=== PATIENT | female | born 1995 | race Asian ===

== ENCOUNTER 2023-11-11 19:04 | Emergency (ER) | payer OTHER, MEDICAID, SELFPAY ==
[2023-11-11 19:13] VITALS: TEMP 37.1; BMI 28.1
--- NOTE | 2023-11-11 19:33 | ED_ITS ---
HPI - Wound/Laceration General Date Seen: 11/11/23 Chief Complaint: Laceration/Wound Stated Complaint: Accidental cut on right wrist Time Seen by Provider: 11/11/23 19:07 Source: patient and RN notes reviewed Mode of arrival: ambulatory Limitations: no limitations History of Present Illness HPI narrative: Patient is a 28-year-old female coming in with scratch into cuts on her right wrist. She was washing a glass earlier today, the glass had a crack in it. When she put her hand inside the glass to wash it, it broke. It cut her wrist on the volar surface both medially and laterally, scratch over the dorsal proximal thumb area which is superficial. Her tetanus is up-to-date in 2019. She tried wound glue at home, it did not hold it. She has a flap along the radial surface of the wrist which is small but not staying well approximated. There is a smaller cut with linear extension into superficial skin on the ulnar side of this wrist. None are actively bleeding. Wounds are with in [address]: home Patient tetanus UTD: Yes Context: accidental Related Data Home Medications Medication Instructions Recorded Confirmed No Known Home Medications 12/30/22 11/11/23 Allergies Allergy/AdvReac Type Severity Reaction Status Date / Time No Known Drug Allergies Allergy Verified 11/11/23 19:13 Review of Systems Narrative: As per HPI. PFSH PFS Social History Smoking Status: Never smoker How often do you have a drink containing alcohol: monthly or less AUDIT-C Alcohol total score: 1 Non-prescribed substance use: marijuana (any form) Non-prescribed substance use details: thc some days Exam Const: Vital Signs, click to edit/add: Vital Signs - 24 hr 11/11/23 19:13 Temperature 98.7 F This 28-year-old female is alert, interactive, no apparent stress. Wounds are described as above in HPI. The wounds on the wrist would benefit from suturing, patient did agree. She has a small flap with the flap heading distally over the radial surface, smaller wound just into the subcutaneous tissue over the medial wrist with medial extension into a superficial wound. Looks like she would benefit from suturing. We discussed rationale for suturing, she would like to proceed. Documenting provider has reviewed patient's vital signs: yes Course Course ED Course: For mL of 2% lidocaine were drawn up, about 3 mL used locally over the 2 wound sites. Wound cleanser was then used to clean these wounds, I did perform this. Simple suture tray was used, standard sterile technique observed. Three simple interrupted sutures were placed along the radial wound, the ulnar wrist wound only required 1 stitch. Patient tolerated this procedure well, no immediate complications. Will have nursing staff bandage with bacitracin. Vital Signs Vital signs: Initial Vital Signs Temperature 98.7 F 11/11/23 19:13 Temperature Source Temporal Artery Scan 11/11/23 19:13 Vital Signs Temperature 98.7 F 11/11/23 19:13 Temperature 98.7 F 11/11/23 19:13 Discharge Plan Discharge Clinical Impression: Lacerations of multiple sites of right arm Qualifiers: Encounter type: initial encounter Qualified Code(s): S41.111A - Laceration without foreign body of right upper arm, initial encounter Patient Disposition: Home, Self-Care Condition: Stable Instructions: Care For Your Stitches (ED), Laceration (ED) Additional Instructions: Need to schedule clinic followup in about 1 weeks time to assess the wound for suture removal. Watch for infection, review handouts, if any concerns seek re-e valuation. Can use Tylenol and ibuprofen if needed for pain management, follow bottle directions for dosing. May shower and wash hands as usual but should otherwise keep the wounds on your wrist clean and dry. Use bacitracin and bandages until the wounds are healed. Activity Level: Activity as Tolerated Prescriptions: No Action No Known Home Medications Follow Up/Referrals: Provider,Not a Local [Primary Care Provider] - Stand Alone Forms: [employer] Info Instructions
[2023-11-11] MEDS: lidocaine HCL 2 % MULTIDOSE 20 ML VIAL 4 ML INJECTION (19:43)
[2023-11-11] MEDS: BACITRACIN 0.9 GM PACKET 1 EACH TOPICAL (19:43)
--- OUTSIDE RECORDS SUMMARY | 2023-11-11 19:50 | XMS_ITS | Encounter Summary ---
Author Name Unknown Organization [facility] Address [address] [place] [address] Care Team Providers Care Factory Process Workers Name Role Phone Found, No Pcp Primary Care Provider Unavailab le Encounter Details Date Type Department Care Team (Late st Contact Info) Description 12/12/2017 Consent for Procedure/Treatme [facility] Obstetrics and Gynecology [address], [place] [phone] Peggy De Los Santos L, FISH NET STRINGER, DNP [address] [place], [place] [phone] CONSENT FOR WATER Social History Tobacco Use Types Packs/Day Years Used Date Smoking Tobacco: Never Smokeless Tobacco: Never Alcohol Use Standard Drinks/Week Comments No 0 (1 standard drink = 0.6 oz pur e alcohol) none now Comments Yes Sex and Gender Information Value Date Recorded Sex Assigned at Not on file Gender Identity Not on file Sexual Orientation Not on file documented as of this encounter Plan of Treatment Not on file documented as of this encounter Visit Diagnoses Not on filedocumented in this encounter Additional Health Concerns Infection Onset Date Last Indicated Resolved Time R/O COVID19 08/01/2021 08/01/2021 08/02/2021 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
--- OUTSIDE RECORDS SUMMARY | 2023-11-11 19:50 | XMS_ITS | Clinical Summary ---
Author Name Unknown Organization [facility] Address [address] [place] [address] Care Team Providers Care Vinyl Installer Name Role Phone Found, No Pcp MD Primary Care Provider Unavailab le Source Comments You are receiving this document as you are listed as the primary care provider,follow-up provider, or the patient has been referred to you for consultation.This is in compliance with the Medicare and[facility] EHR Incentive Program,which states Providers who transition their patient to another setting of careor provider of care or refers their patient to another provider of care shouldprovide summary care record for each transition of care or referral. [facility] Allergies No known active allergies Medications Medication Sig Dispensed Refills Start Date End Date Status Misc. Devices (BREAST PUMP)Indications:Priti gregorio is a currently breast-feeding mother breast pump and supplies [facility] [place] 1 Each 07/18/2023 Active Active Problems Problem Noted Date Diagnosed Date Encounter for sterilization 05/04/2020 Overview: Added automatically from request for surgery [id number] Diet controlled gestational diabetes mellitus (GDM), antepartum 03/23/2020 Myopia 06/24/2014 Regular astigmatism 06/24/2014 Family history of thyroid disorder 10/20/2011 Resolved Problems Problem Noted Date Diagnosed Date Resolved Date Appendicitis 12/07/2020 11/28/2021 Overview: Added automatically from request for surgery [id number] (normal spontaneous vaginal delivery) 04/18/2020 11/28/2021 Supervision of high risk pre gnancy in third trimester 04/09/2020 11/28/2021 Encounter for supervision of normal , antepartum 03/23/2020 11/28/2021 Sterilization consult 02/17/20202019 Overview: Signed 01/08/2020 (spontaneous vaginal delivery) 02/05/2018 11/18/2019 Marijuana user 02/04/2018 04/22/2018 Poor weight gain of pregnanc y, unspecified trimester 02/04/2018 11/18/2019 Pyelectasis of fetus on ultrasound 09/19/2017 11/18/2019 Overview: 6.44 on the left. Right is WNL. Plan for repeat by 32 weeks if not resolved. Resolved at 32 weeks Careplan: [employer] 09/10/2017 04/22/2018 Overview: This patient is enrolled in the [employer] Program. The program provides patients with support, education, referrals and resources during their . Reason for enrollment: +THC at initial OB. Reports one-time use on . No use since. Depression/Anxiety complication . Next Urine Drug Screen: repeat UDS @ 28 weeks For more information, please contact SARY Lainez, [employer] Specialist, at [phone]. Hyperemesis gravidarum 08/03/201711/17 Overview: 14 pound weight loss from first ob. Homecare. Rx meds sent. of unknown anatomic location 06/05/2017 09/07/2017 Overview: Screening for malignant neoplasm of cervix 10/19/2016 11/21/2019 Overview: Per visit note dated September: Hx of abnormal paps: no 2016 NILM 21 y.o. PLAN: pap test 09/2019 ; Pap test history Supervision of normal 10/09/2016 11/17/2016 Overview: No longer , BHCG elevated and returned to < 2 Hx PTL x 3 with delivery @ 37 wks x 3 SMITA: 05/15/17 by LMP (u/s to confirm dating ordered) [facility] HPSP (given info on PIP) Support: Fabio Feed: Breast (bottle fed others, invited to PIP) GBS Labor Contraception Peds Labia enlarged 12/31/2011 04/18/2020 Low back pain 12/30/2009 08/03/2017 Overview: Musculoskeletal strain @ 29 weeks, PT referral, prn Flexeril ICD 10 Teen 07/15/2009 08/03/2017 Overview: Closely spaced . Call Dr. Arguelles for delivery. History of 3rd degree laceration Insertion of intrauterine device (IUD) 03/01/2009 12/30/2009 Overview: Nica, due out 02/2014 Supervision of high-risk 12/22/2008 11/18/2019 Overview: SMITA 02/05/18 by LMP. Good dating. GBS___ Thinking water . Consent signed. Hep C____ FOB__ Hospital: [facility] Feed: breast Labor: water Contraception: GBS (group B Streptococcus c arrier), +RV culture, currently 12/21/2008 11/18/2019 Overview: Positive in urine 12/19/2008 in labor and delivery Supervision of high-risk pre gnancy of young primigravida 07/09/2008 03/15/2009 Overview: Fabio AKINS and mom, Rebecca Immunizations Name Administration Dates Next Due DTaP 04/20/2000,03/30/1999,1993 HepB Ped/Adol (0-18 yrs) 03/21/2006,03/30/1999,0 1993,1993 Hib, Unspecified Formulation 1993 IPV (Polio) 04/20/2000,03/30/1999,1993 MMR 04/20/2000,03/30/1999 Positive Rubella Titer 11/18/2019 Tdap 02/17/2020,03/21/2006 Varicella 03/21/2006(Deferred: Immune by Disease),03/30/1999 Family History Medical History Relation Name Comments Diabetes, Type II Father Anxiety Mother Diabetes, Type II Mother Anxiety Brother 3 Coronary Artery Disease Maternal Grandmother at 52 yrs of age Diabetes, Type II Maternal Grandmother Hyperlipidemia Maternal Grandmother Hypertension Maternal Grandmother Diabetes, Type II Sister 2 Alcohol Abuse Negative Family History Bleeding Disorder Negative Family History Cancer, Breast Negative Family History Cancer, Colon Negative Family History Cancer, Ovary Negative Family History Drug Abuse Negative Family History Thromboembolic Disease Negative Family History Relation Name Status Comments Father Alive Mother Alive Brother 1 Alive Brother 2 Alive Brother 3 Daughter 1 Alive Daughter 2 Alive Daughter 3 Alive Maternal Grandfather Maternal Grandmother Paternal Grandfather Paternal Grandmother Sister 1 Alive Sister 2 Son Alive Social History Tobacco Use Types Packs/Day Years Used Date Smoking Tobacco: Never Smokeless Tobacco: Never Alcohol Use Standard Drinks/Week Comments No 0 (1 standard drink = 0.6 oz pur e alcohol) none now Sex and Gender Information Value Date Recorded Sex Assigned at Not on file Gender Identity Not on file Sexual Orientation Not on file Last Filed Vital Signs Vital Sign Reading Time Taken Comments Blood Pressure 106/47 12/30/2022 2:00 AM CDT Pulse 84 12/30/2022 2:00 AM CDT Temperature 37.1 ??C (98.7 ??F) 12/29/2022 9:33 PM CD T Respiratory Rate 16 12/30/2022 1:30 AM CDT Oxygen Saturation 97% 12/30/2022 2:00 AM CDT Inhaled Oxygen Concentration - - Weight 68.5 kg (151 lb) 11/28/2021 4:17 PM CDT Height 154.9 cm (5' 1) 11/22/2020 5:45 PM CDT Body Mass Index 28.53 11/22/2020 5:45 PM CDT Plan of Treatment Health Maintenance Due Date Last Done Comments Adult Preventive Visit 2011 03/21/2006 Cervical Cancer Screening 11/17/20222019, 10/09/2016, 10/09/2016 (Completed), Additional history exists COVID-19 Vaccine ( season) 2023 Influenza (#1) 2023 DTaP/Tdap/Td (6 - Tdap) 02/16/2030 02/17/20 20, 03/21/2006, 04/20/2000, Additional history exists Zoster/Shingles (1 of 2) 2043 Hib Aged Out 1993 No longer eligi ble based on patient's age to complete this topic IPV (Polio) Completed 04/20/2000, 07/1998, 1993 HepB Completed 03/21/2006, 07/1998, 1993, Additional history exists Hep C Screening (Preventive Services) Completed 01/08/2018 HIV Screening (Preventive Services) Completed 11/18/2019, 03/27/2019, 06/01/2017, Additional history exists HPV Vaccine Aged Out No longer eligi ble based on patient's age to complete this topic HepA Aged Out No longer eligi ble based on patient's age to complete this topic MCV4 Aged Out No longer eligi ble based on patient's age to complete this topic Pneumococcal Aged Out No longer eligi ble based on patient's age to complete this topic Procedures Procedure Name Priority Date/Time Associated Diagnosis Comments HIV 1/2 AG/AB 4TH GEN Routine 11/18/2019 2:19 PM CDT Supervision of high risk in second trimester PAP TEST Routine 11/18/2019 2:19 PM CDT Screening for malignant neoplasm of cervix HEPATITIS C ANTIBODY, WITH REFLEX Routine 01/08/2018 10:41 AM CDT Supervision of high risk in third trimester from Last 3 Months or Most Recently Relevant to Health Maintenance Results * PAP Test (11/18/2019 2:19 PM CDT) Case Report Pap ? Case: [id number] ? Authorizing Provider: ??Tamy Obregon APRN, Collected: ? 11/18/2019 02:19 PM ? CNM ? Ordering Location: ? [facility] ?Received: ?11/18/2019 02:27 PM ? Obstetrics and Gynecology ? First Screen: ?Michael, Erica R ? Rescreen: ?Thuan, Yusra N ? Specimen: ?Pap Test, Routine, Cervix/Endocervix ? 11/20/2019 2:52 PM CDT [facility] Pap Specimen Adequacy Satisfactory for evaluation, endocervical/herrmann sformation zone component absent. 11/20/2019 2:52 PM T [facility] Pap Interpretation Negative for intraepithelial lesion or malignancy (NILM). 11/20/2019 2:52 PM [facility] Pap Disclaimer The Pap test is a screening test designed to aid in the detection of cervical cancer and its precursor lesions. It is not a diagnostic procedure and should not be used as the sole means of detecting cervical cancer. Both false-positive and false-negative reports may occur. 11/20/2019 2:52 PM [facility] Gross Description The specimen is received in SurePath fixative and properly labeled. 1 Pap-stained SurePath slide is prepared. 11/20/2019 2:52 PM [facility] Embedded Images 0 2:52 PM [facility] Other Specimen Type ENTIRE ENDOCERVIX / Unknown 11/18/2019 2:19 PM CDT 11/18/2019 2:27 PM CDT Comment:LMP: No LMP recorded . (Menstrual status: ). Tamy Obregon APRN, CNM LAB PATHOLO GY Performing Organization Address City/[facility]/ZIP Co de Phone Number [address] [address], [facility] [phone] * HIV 1/2 AG/AB 4TH GEN (11/18/2019 2:19 PM CDT) HIV 1/2 Antigen/Anti body (4th generation) Negative (Non Reactive) Negative (Non Reactive) 11/18/2019 5:59 PM CDT [facility] Comment:HIV-1 p24 Antigen an d HIV-1/HIV-2 Antibody not detected Blood Venipuncture / Unknown 11/18/2019 2:19 PM CDT 11/18/2019 2:19 PM CDT Tamy Obregon APRN, CNM LAB_1 Performing Organization Address City/[facility]/ZIP Co de Phone Number [facility] [address] [address], [facility] [phone] * Hepatitis C Antibody, with Reflex (01/08/2018 10:41 AM CDT) Anti-HCV Negative (Non Reactive) [facility] Comment: Antibodies to HCV not detected. Does not exclude the possibility of exposure to HCV. 01/08/2018 10:4 1 AM CDT 01/08/2018 10:42 AM CDT Narrative [facility] - 01/08/2018 2:34 PM CDT Performed at [facility], [address] [place] [address] ??[id number] Peggy De Los Santos APRN, DNP LAB_1 [facility] [phone] from Last 3 Months or Most Recently Relevant to Health Maintenance Advance Directives * Full Code (Latest Code Status on File) Date Activated Date Inactivated Comments 12/08/2020 4:51 AM 12/08/2020 2:58 PM * Full Code Date Activated Date Inactivated Comments 04/18/2020 12:55 PM 04/19/2020 1:13 PM * Full Code Date Activated Date Inactivated Comments 04/18/2020 6:05 AM 04/18/2020 12:55 PM * Full Code Date Activated Date Inactivated Comments 02/04/2018 2:57 PM 02/06/2018 2:44 PM * Full Code Date Activated Date Inactivated Comments 02/04/2018 6:20 AM 02/04/2018 2:57 PM Care Teams Vinyl Installer Relationship Specialty Start Date End Date Found, No Pcp, [address] [place] [address] PCP - General 12/29/22
== END 2023-11-11 20:18 | disposition home or self-care (01) ==
LOC: ED 19:47
PROVIDERS: Emergency Provider Family Medicine
DX: S61.511A Laceration without foreign body of right wrist, initial encounter (principal); W25.XXXA Contact with sharp glass, initial encounter
CPT/HCPCS: 12001; 99283; A9270